=== PATIENT | female | born 2000 | race Caucasian/White ===

== ENCOUNTER 2024-05-24 17:28 | Emergency (ER) | payer OTHER, SELFPAY ==
[2024-05-24 17:33] VITALS: BP 133/89
--- NOTE | 2024-05-24 18:24 | ED.GENMED ---
History of Present Illness
General
Chief Complaint: Depression
Source: patient
Exam Limitations: none
Time Seen by Provider: 05/24/24 18:15
History of Present Illness
History of Present Illness:
See MDM
Past History
Past History
ED Past Medical History: None
ED Past Surgical History: None
Social History
Tobacco: Non-smoker
Alcohol: Occasional
Phy Exam
Physical Exam
Physical Exam:
See MDM
Course
Orders/Labs/Results
Orders:
Orders
05/24/24 17:31
Crisis Consult Urgent
Reason for Consult: pt needs crisis eval to be able to start outpt therapy
Comment: for depression. denies SI.
05/24/24 18:23
HydrOXYZINE [Atarax] 25 mg PO NOW STA
Vital Signs
Initial and Last Documented VS:
Initial Vital Signs
Temp Pulse Resp BP Pulse Ox
98.8 F 84 16 133/89 98
05/24/24 17:33 05/24/24 17:33 05/24/24 17:33 05/24/24 17:33 05/24/24 17:33
Last Documented Vital Signs
Temp Pulse Resp BP Pulse Ox
98.8 F 84 16 133/89 98
05/24/24 17:33 05/24/24 17:33 05/24/24 17:33 05/24/24 17:33 05/24/24 17:33
MDM/Problems Addressed
Differential Diagnosis Includes:
HPI and MDM Narrative:
23-year-old female presenting for evaluation of increased depression. Patient states she believes the stressors include starting a full-time job. She is with her mother and father and appears to have a very good system. She got her intake earlier
today for outpatient therapy she had expressed increased depression and she was sent to the emergency for clearance first. Will have crisis evaluate but patient is extremely well-appearing nontoxic. She is very goal oriented and denies any
suicidal homicidal ideations. She is not intoxicated and feels comfortable going home
Physical exam
General: Well appearing and non-toxic
HEENT: protecting airway
Neck: appears supple
CV: No evidence of cyanosis
Resp: No accessory muscle use
Abd: Non-distended
Extremities: No deformities
Neuro: alert
Psych: Normal affect
Skin: Intact
Problems Addressed including Acute and Chronic Conditions affecting care:
1. Depression
Acuity: acute
Prognosis: stable
Details: Likely situational and related to change in job. She is extremely well-appearing nontoxic and appears to be no harm to herself. Parents at bedside appear to be a very good support system
Updates
Patient evaluated by crisis and patient feels very positive about discharge
Differential Diagnosis (but not limited to): Reactive depression, anxiety
Testing considered: UDS but she is not clinically intoxicated and denies drug use
Drug therapy (if applicable): OTC meds, please see d/c instruction regarding Rx drugs
Amount and/or Complexity of Data Reviewed
Clinical info obtained from: Patient
External data reviewed: N/A
Labs I independently reviewed (but not limited to): N/A
Radiology: N/A
Pulse Ox: not hypoxic
EKG independently reviewed: N/A
Alligator Hunter: N/A
Critical Care: N/A
Risk of Complication:
Social Determinants of health: Good social support
Discussed with other providers: Crisis
Escalation of Care includes Admit/Obs: After being observed in the Emergency Department, pt stable for discharge.
Occasional wrong word or 'sound a like' substitutions may have occurred due to the inherent limitations of voice recognition software. Read the chart carefully and recognize, using context, where substitutions have occurred.
*Critical Care Note
Total Time (30-74mins, 75-104mins- exclusive of procedures): Not Applicable
ED Attending Note
-
Portions of this chart may have been created with voice recognition software.� Occasional wrong word or��sound alike� substitutions may have occurred due to the inherent limitations of voice recognition software.
Discharge Plan
Departure
Patient Disposition: Home (Routine Discharge)
Date of Disposition: 05/24/24
Time of Disposition: 18:48
Patient with high blood pressure during this ER visit?: No
Discharge Problem:
Depression
Instructions: Depression, Adult (DC)
Prescriptions:
New
hydroxyzine HCl 25 mg tablet
25 mg PO BID PRN (Reason: anxiety) Qty: 20 0RF
Activity Restrictions/Additional Instructions:
Please return for any worsening symptoms.
You may return at any time if you have further concerns.
Please follow up with your outpatient program.
Thank you for choosing [facility].
Interventions
Interventions:
*Risk Screen - Suicide Last Done: 05/24/24 17:30
*General Assessment Last Done: 05/24/24 18:01
*Neglect/Abuse Screening Last Done: 05/24/24 17:37
*ED- Fall Risk Assessment Last Done: 05/24/24 18:01
*ED COVID-19 Vaccine History Last Done: 05/24/24 18:01
ED-Psychological Assessment Last Done: 05/24/24 18:01
Discharge Date and Time
Print Language: NAMIBIAN
[2024-05-24] MEDS: ATARAX 25 MG PO (18:57)
[2024-05-24 19:02] VITALS: BP 126/89
== END 2024-05-24 19:03 | disposition home or self-care (01) ==
LOC: EMR 17:28
PROVIDERS: EMERGENCY PHYSICIAN Student in an Organized Health Care Education/Training Program; FAMILY PHYSICIAN Family Medicine
DX: F32.A Depression, unspecified (principal)
CPT/HCPCS: 99283